=== PATIENT | female | born 1965 | race Caucasian/White ===

== ENCOUNTER → 2017-03-18 | Outpatient (REF) | payer BC ==
[2017-03-18 20:40] LABS: IMMUNOGLOBULIN G 1020 MG/DL (681-1648); IMMUNOGLOBULIN M 78.9 MG/DL (40-230); TOTAL PROTEIN 8.2 GM/DL (6.4-8.2)
[2017-03-21 10:32] LABS: ALBUMIN 4.47 GM/DL (3.29-5.55); ALBUMIN % 54.5 % (55.8-66.1); GAMMA GLOBULIN % 14.8 % (11.1-18.8)
[2017-03-22 00:15] LABS: BETA 2 MICROGLOBULIN 1.9 mg/L (0.6-2.4); FREE KAPPA LIGHT CHAINS SERUM 33.1 mg/L (3.3-19.4); FREE LAMBDA LIGHT CHAINS SERUM 33.9 mg/L (5.7-26.3); KAPPA/LAMBDA RATIO SERUM 0.98 (0.26-1.65)
== END ==
LOC: M LAB REF 16:28
PROVIDERS: ATTEND Internal Medicine Medical Oncology
DX: M89.9 Disorder of bone, unspecified (principal)

== ENCOUNTER → 2017-03-18 | Outpatient (CLI) | payer BC, OTHER ==
--- NOTE | 2017-03-19 09:57 | REP ---
Clinical: Adult bone survey. Evaluate for metastatic disease. Technique: AP and lateral views of the calvarium, cervical, thoracic, and lumbosacral spine along swimmer's view of the cervicothoracic level, and AP views of the bilateral humeri and femurs. Findings: Calvarium demonstrates heterogeneous changes likely representing elements of hyperostosis and age-related changes without significant discrete lytic lesions to suggest metastatic disease. Cervical spine demonstrates focal advanced degenerative changes at the C5-6 level without findings to suggest metastatic disease. Thoracic spine demonstrates age-related degenerative changes without evidence to suggest metastatic disease. Lumbosacral spine again demonstrates heterogeneous appearance to the L3, L4, and L5 vertebra with hypertrophic facet changes marginal osteophytes and disc space narrowing as well as loss of height at L4 and L5. These findings are relatively similar to appearance by CT dated 05/29/2013 and likely represent sequelae of prior trauma. Bilateral humerus and femurs demonstrate age-related degenerative changes to the shoulder and hip joints and no evidence for metastatic disease. Impression: 1. Chronic-appearing changes to the L3 through L5 vertebral bodies remains relatively stable compared to CT dated 2012 and likely represent sequelae of prior trauma. 2. No definite osseous lesions to suggest malignancy or metastatic disease. Signed by Barrett Duffy MD 03/19/2017 09:48 A
== END ==
LOC: M RAD 14:13
PROVIDERS: ATTEND Nurse Practitioner Family
DX: M89.9 Disorder of bone, unspecified (principal)

== ENCOUNTER → 2018-03-25 | Outpatient (CLI) | payer BC | LOC: M RAD 10:20 | DX: M85.00 Fibrous dysplasia (monostotic), unspecified site (principal) | CPT/HCPCS: 77075 ==

== ENCOUNTER 2018-07-03 11:45 | Day surgery (SDC) | payer BC ==
[~2018-07-03 11:45] MED LIST: LIDOCAINE 2% INJ 100 MG/5 ML SDV (FOR ANES.) As Ordered; PROPOFOL 200 MG/20 ML VIAL As Ordered
[2018-07-03] MEDS: NS 1,000 ML IV (12:30)
== END 2018-07-03 14:54 | disposition home or self-care (01) ==
LOC: M OPP 11:45
DX: Z12.11 Encounter for screening for malignant neoplasm of colon (principal); K64.8 Other hemorrhoids; K57.30 Diverticulosis of large intestine without perforation or abscess without bleeding; R10.13 Epigastric pain; R12 Heartburn; K22.8 Other specified diseases of esophagus; I10 Essential (primary) hypertension; E11.9 Type 2 diabetes mellitus without complications; K21.9 Gastro-esophageal reflux disease without esophagitis; Z78.0 Asymptomatic menopausal state; J45.909 Unspecified asthma, uncomplicated; M85.00 Fibrous dysplasia (monostotic), unspecified site; Z80.43 Family history of malignant neoplasm of testis; Z88.1 Allergy status to other antibiotic agents; Z88.0 Allergy status to penicillin; Z88.2 Allergy status to sulfonamides; Z79.84 Long term (current) use of oral hypoglycemic drugs; Z79.899 Other long term (current) drug therapy
CPT/HCPCS: G0121